=== PATIENT | male | born 1975 | race Two or more races ===

== ENCOUNTER 2023-08-11 20:09 | Emergency (ER) | payer BC, OTHER ==
[2023-08-11 20:46] VITALS: BP 141/65; PULSE 72; RESP 20; TEMP 98; BMI 31.8
[2023-08-11] MEDS ORDERED: KETOROLAC TROMETHAMINE 30 MG/1 ML VIAL ONE (23:40)
[2023-08-11] MEDS: KETOROLAC TROMETHAMINE 30 MG/1 ML VIAL IM ONE (23:42)
== END 2023-08-12 00:23 | disposition home or self-care (01) ==
LOC: JER 20:09
PROC: 3E023NZ Introduction of Analgesics, Hypnotics, Sedatives into Muscle, Percutaneous Approach (ICD-10-PCS; principal; 2023-08-11)
DX: M25.511 Pain in right shoulder (principal); X50.0XXA Overexertion from strenuous movement or load, initial encounter; Y93.89 Activity, other specified
CPT/HCPCS: 99284-25